=== PATIENT | male | born 1970 | race Caucasian/White ===

== ENCOUNTER 2021-04-28 14:25 | Emergency (ER) | payer OTHER ==
[~2021-04-28] VITALS: Ht 170.2 cm; Wt 70.3 kg
[2021-04-28 14:34] VITALS: BP 115/81
--- NOTE | 2021-04-28 15:06 | NUR ---
SEEN AND EXAMINED BY .
[2021-04-28] MEDS ORDERED: CHLORDIAZEPOXIDE HCL 25 MG CAPSULE ONE (15:22)
[2021-04-28] MEDS ORDERED: LORAZEPAM INJ 2 MG/ML VIAL ONE (15:23)
[2021-04-28] MEDS ORDERED: LORAZEPAM INJ 2 MG/ML VIAL IM ONE (15:30)
[2021-04-28] MEDS ORDERED: CHLORDIAZEPOXIDE HCL 25 MG CAPSULE PO ONE (15:30)
[2021-04-28] MEDS ORDERED: CHLO25CA22 PO (16:45)
--- NOTE | 2021-04-28 16:47 | NUR ---
Patient discharged to home in stable condition. Written and verbal after care instructions given. Patient verbalizes understanding of instruction.
== END 2021-04-28 16:48 | disposition home or self-care (01) ==
LOC: ER 14:31
DX: F10.239 Alcohol dependence with withdrawal, unspecified (principal); R25.1 Tremor, unspecified; F41.9 Anxiety disorder, unspecified; Y90.9 Presence of alcohol in blood, level not specified
CPT/HCPCS: 96372; 99283; J2060